=== PATIENT | male | born 1960 | race Caucasian/White ===

== ENCOUNTER 2017-09-19 10:38 | Inpatient (IN) | payer MEDICARE, MEDICAID ==
[2017-09-19] MEDS ORDERED: Aspirin 81 mg CHEW TAB* 81 MG TAB.CHEW PO ONE (10:47)
[2017-09-19] MEDS: NS 0.9% 1000 ML* 1,000 ML IV ONE ×3 (10:50→11:22)
--- NOTE | 2017-09-19 11:18 | RAD ---
Indication: Dyspnea on exertion. Chest pain. Former tobacco use. Comparison: No relevant prior exams available on the [facility] PACS for comparison. Technique: Upright AP 1053 hours Report: Mild linear atelectasis at the bilateral lower lung zones. Indeterminant LEFT suprahilar density which may be artifact due to normal bronchovascular structures or represent a hilar mass. The LEFT costophrenic angle is incompletely included in the [id number]. The visualized pleural spaces are clear. Negative for pneumothorax. Mild cardiomegaly. Unremarkable central pulmonary vasculature. Anterior cervical fusion hardware and surgical anchor at the RIGHT humerus. IMPRESSION: 1. Indeterminant opacity at the LEFT suprahilar region. Given absence of prior exams on the [facility] PACS to document stability and history of tobacco use consider PA and lateral chest radiographs or contrast-enhanced chest CT for further assessment. 2. Mild bilateral lower lung zone linear subsegmental atelectasis.
[2017-09-19 11:33] LABS: ABS Basophils 0 10^3/ul (0-0.2); ABS Eosinophils 0 10^3/ul (0-0.6); ABS Lymphocytes 0.4 10^3/ul (1.0-4.8); ABS Monocytes 0.3 10^3/ul (0-0.8); ABS Neutrophils 0.8 10^3/ul (1.5-7.7); ABS Nucleated RBC 0 10^3/ul; Eosinophil % 0.2 % (0-6); Hematocrit 25 % (42-52); Hemoglobin 8.4 g/dl (14.0-18.0); Lymphocyte % 27.5 % (25-47); Mean Corpuscular HGB Conc 34 g/dl (31-36); Mean Corpuscular Hemoglobin 38 pg (27-31); Mean Corpuscular Volume 111 fL (80-94); Mean Platelet Volume 8.2 um3 (7.4-10.4); Nucleated Red Blood Cells % 0; Platelet Count 54 10^3/ul (150-450); Red Blood Count 2.23 10^6/ul (4.0-5.4); Red Cell Distribution Width 17 % (10.5-15); White Blood Count 1.5 10^3/ul (3.5-10.8)
[2017-09-19] MEDS ORDERED: Piperacillin/Tazobac ADVAN(*) 3.375 GM in NS 0.9% 100 ML* 100 ML IVPB ONE (11:37)
[2017-09-19 11:54] LABS: EGFR Non-African American 110.4 (>60)
[2017-09-19] MEDS: NS 0.9% 1000 ML*IV.FLUID IV ONE ×2 (11:57→12:04)
[2017-09-19 11:58] LABS: Urine Appearance Clear; Urine Blood Negative (Negative); Urine Color Yellow; Urine Ketones Negative (Negative); Urine Protein Negative (Negative); Urine Specific Gravity 1.013 (1.010-1.030); Urine Urobilinogen Negative (Negative)
[2017-09-19] MEDS ORDERED: Vancomycin(*) 1,000 MG VIAL IVPB SCH (12:00)
[2017-09-19] MEDS ORDERED: Vancomycin 1500 MG IV - x ONCE IVPB ONE ×2 (12:30)
--- NOTE | 2017-09-19 13:52 | ED ---
Stuart Cosme Tiffany, scribed for Yifan Giles on 09/19/17 at 1057 . HPI Chest Pain - HPI Summary HPI Summary: 56 y/o M NELI from Urgent Care complains of central chest pain that began last night, worse since 05:00 today. Pain radiates to his back. Rates pain 0/10 in severity. Symptoms aggravated and alleviated by nothing. Reports chills that began at 09:00 today, fever. Denies cough. Given Tylenol at Urgent Care. Hx of blood disease, takes aspirin. Denies hx asthma, COPD, blood clots. - History of Current Complaint Chief Complaint: EDFever Time Seen by Provider: 09/19/17 10:46 Hx Obtained From: Patient Onset/Duration: Started Hours Ago - Last night, Still Present, Worse Since - 05: 00 today Current Severity: None Pain Intensity: 0 Pain Scale Used: 0-10 Numeric Chest Pain Location: Diffuse Chest Pain Radiates: Yes Chest Pain Radiates To:: Back Aggravating Factor(s): Nothing Alleviating Factor(s): Nothing Associated Signs and Symptoms: Positive: Fever, Chills. Negative: Cough - Allergy/Home Medications Allergies/Adverse Reactions: Allergies Allergy/AdvReac Type Severity Reaction Status Date / Time doxycycline Allergy Joint Pain Verified 09/19/17 12:05 Home Medications: Home Medications Aspirin EC TAB* [Ecotrin EC Low Dose 81 MG*] 81 mg PO DAILY 09/19/17 [History Confirmed 09/19/17] Baclofen TAB* [Lioresal TAB*] 10 mg PO TID PRN 09/19/17 [History Confirmed 09/19] Clindamycin Cap(NF) [Clindamycin Cap 300 mg Cap(NF)] 300 mg PO Q6H 09/19/17 [ History Confirmed 09/19/17] Cyanocobalamin TAB* [Vitamin B12 TAB*] 1,000 mcg PO DAILY 09/19/17 [History Confirmed 09/19/17] Fenofibrate(NF) [Tricor(NF)] 145 mg PO DAILY 09/19/17 [History Confirmed ] Gabapentin CAP(*) [Neurontin 400 mg CAP(*)] 800 mg PO TID 09/19/17 [History Confirmed 09/19/17] HYDROmorphone TAB* [Dilaudid TAB*] 4 mg PO QID PRN 09/19/17 [History Confirmed 09/19/17] metFORMIN* [Glucophage 500 MG TAB *] 500 mg PO BID 09/19/17 [History Confirmed 09/19/17] PMH/Surg Hx/FS Hx/Imm Hx Previously Healthy: No Endocrine/Hematology History: Reports: Other Endocrine/Hematological Disorders - Blood disease Respiratory History: Denies: Hx Asthma, Hx Chronic Obstructive Pulmonary Disease (COPD) Sensory History: Reports: Hx Contacts or Glasses Denies: Hx Deafness Opthamlomology History: Reports: Hx Contacts or Glasses EENT History: Denies: Hx Deafness - Surgical History Surgery Procedure, Year, and Place: Back surgery--fusion. Shoulder surgery Infectious Disease History: No Infectious Disease History: Denies: Traveled Outside the [place] in Last 30 Days - Family History Known Family History: Positive: Cardiac Disease - Father, Diabetes - Both mother and father - Social History Hx Substance Use: No Substance Use Type: Reports: None Smoking Status (MU): Unknown if Ever Smoked Review of Systems Positive: Fever, Chills Positive: Chest Pain Negative: Cough All Other Systems Reviewed And Are Negative: Yes Physical Exam - Summary Physical Exam Summary: Appearance: Well appearing, no pain distress Skin: warm, dry, reflects adequate perfusion Head/face: normal Eyes: EOMI, RADHA ENT: normal Neck: supple, non-tender Respiratory: CTA, breath sounds present Cardiovascular: Tachycardia Abdomen: non-tender, soft Bowel: present Musculoskeletal: normal, strength/ROM intact Neuro: normal, sensory motor intact, A&Ox3 Triage Information Reviewed: Yes Vital Signs On Initial Exam: Initial Vitals Temp Pulse Resp BP Pulse Ox 102.1 F 130 22 175/87 96 09/19/17 10:38 09/19/17 10:38 09/19/17 10:38 09/19/17 10:38 09/19/17 10:38 Vital Signs Reviewed: Yes Diagnostics - Vital Signs Vital Signs Temp Pulse Resp BP Pulse Ox 09/19/17 10:38 102.1 F 130 22 175/87 96 - Laboratory Lab Results: Lab Results 09/19/17 09/19/17 09/19/17 Range/Units 11:00 11:00 11:00 WBC 1.5 L (3.5-10.8) 10^3/ul RBC 2.23 L (4.0-5.4) 10^6/ul Hgb 8.4 L (14.0-18.0) g/dl Hct 25 L (42-52) % MCV 111 H (80-94) fL MCH 38 H (27-31) pg MCHC 34 (31-36) g/dl RDW 17 H (10.5-15) % Plt Count 54 L (150-450) 10^3/ul MPV 8.2 (7.4-10.4) um3 Neut % (Auto) 53.8 (38-83) % Lymph % (Auto) 27.5 (25-47) % [place] % (Auto) 17.9 H (0-7) % Eos % (Auto) 0.2 (0-6) % Baso % (Auto) 0.6 (0-2) % Absolute Neuts (auto) 0.8 L* (1.5-7.7) 10^3/ul Absolute Lymphs (auto) 0.4 L (1.0-4.8) 10^3/ul Absolute Monos (auto) 0.3 (0-0.8) 10^3/ul Absolute Eos (auto) 0 (0-0.6) 10^3/ul Absolute Basos (auto) 0 (0-0.2) 10^3/ul Absolute Nucleated RBC 0 10^3/ul Nucleated RBC % 0 APTT 29.8 (26.0-36.3) seconds D-Dimer, Quantitative < 200 (Less Than 230) ng/mL Sodium 138 L (139-145) mmol/L Potassium 3.5 (3.5-5.0) mmol/L Chloride 106 (101-111) mmol/L Carbon Dioxide 22 (22-32) mmol/L Anion Gap 10 (2-11) mmol/L BUN 9 (6-24) mg/dL Creatinine 0.73 (0.67-1.17) mg/dL Est GFR ( Amer) 141.9 (>60) Est GFR (Non-Af Amer) 110.4 (>60) BUN/Creatinine Ratio 12.3 (8-20) Glucose 160 H (70-100) mg/dL Lactic Acid (0.5-2.0) mmol/L Calcium 8.5 L (8.6-10.3) mg/dL Magnesium 1.4 L (1.9-2.7) mg/dL Total Bilirubin 1.10 H (0.2-1.0) mg/dL AST 22 (13-39) U/L ALT 18 (7-52) U/L Alkaline Phosphatase 36 (34-104) U/L Total Creatine Kinase 59 (10-223) U/L CK-MB (CK-2) 1.1 (0.6-6.3) ng/mL Troponin I 0.00 (<0.04) ng/mL B-Natriuretic Peptide ( - 100) pg/mL Total Protein 6.4 (6.4-8.9) g/dL Albumin 3.8 (3.2-5.2) g/dL Globulin 2.6 (2-4) g/dL Albumin/Globulin Ratio 1.5 (1-3) TSH 0.24 L (0.34-5.60) mcIU/mL Urine Color Urine Appearance Urine pH (5-9) Ur Specific [employer] [place] (1.010-1.030) Urine Protein (Negative) Urine Ketones (Negative) Urine Blood (Negative) Urine Nitrate (Negative) Urine Bilirubin (Negative) Urine Urobilinogen (Negative) Ur Leukocyte Esterase (Negative) Urine Glucose (Negative) 09/19/17 09/19/17 09/19/17 Range/Units 11:01 11:01 11:01 WBC (3.5-10.8) 10^3/ul RBC (4.0-5.4) 10^6/ul Hgb (14.0-18.0) g/dl Hct (42-52) % MCV (80-94) fL MCH (27-31) pg MCHC (31-36) g/dl RDW (10.5-15) % Plt Count (150-450) 10^3/ul MPV (7.4-10.4) um3 Neut % (Auto) (38-83) % Lymph % (Auto) (25-47) % [place] % (Auto) (0-7) % Eos % (Auto) (0-6) % Baso % (Auto) (0-2) % Absolute Neuts (auto) (1.5-7.7) 10^3/ul Absolute Lymphs (auto) (1.0-4.8) 10^3/ul Absolute Monos (auto) (0-0.8) 10^3/ul Absolute Eos (auto) (0-0.6) 10^3/ul Absolute Basos (auto) (0-0.2) 10^3/ul Absolute Nucleated RBC 10^3/ul Nucleated RBC % APTT (26.0-36.3) seconds D-Dimer, Quantitative (Less Than 230) ng/mL Sodium (139-145) mmol/L Potassium (3.5-5.0) mmol/L Chloride (101-111) mmol/L Carbon Dioxide (22-32) mmol/L Anion Gap (2-11) mmol/L BUN (6-24) mg/dL Creatinine (0.67-1.17) mg/dL Est GFR ( Amer) (>60) Est GFR (Non-Af Amer) (>60) BUN/Creatinine Ratio (8-20) Glucose (70-100) mg/dL Lactic Acid 2.5 H* (0.5-2.0) mmol/L Calcium (8.6-10.3) mg/dL Magnesium (1.9-2.7) mg/dL Total Bilirubin (0.2-1.0) mg/dL AST (13-39) U/L ALT (7-52) U/L Alkaline Phosphatase (34-104) U/L Total Creatine Kinase (10-223) U/L CK-MB (CK-2) (0.6-6.3) ng/mL Troponin I (<0.04) ng/mL B-Natriuretic Peptide 25 ( - 100) pg/mL Total Protein (6.4-8.9) g/dL Albumin (3.2-5.2) g/dL Globulin (2-4) g/dL Albumin/Globulin Ratio (1-3) TSH (0.34-5.60) mcIU/mL Urine Color Yellow Urine Appearance Clear Urine pH 7.0 (5-9) Ur Specific [employer] [place] 1.013 (1.010-1.030) Urine Protein Negative (Negative) Urine Ketones Negative (Negative) Urine Blood Negative (Negative) Urine Nitrate Negative (Negative) Urine Bilirubin Negative (Negative) Urine Urobilinogen Negative (Negative) Ur Leukocyte Esterase Negative (Negative) Urine Glucose 1+(50 mg/dl) A (Negative) Result Diagrams: 09/19/17 11:00 09/19/17 11:00 Lab Statement: Any lab studies that have been ordered have been reviewed, and results considered in the medical decision making process. - Radiology CXR Radiology Interpretation Completed By: Radiologist - 1. Indeterminant opacity at the LEFT suprahilar region. Given absence of prior exams on the [facility] PACS to document stability and history of tobacco use consider PA and lateral chest radiographs or contrast-enhanced chest CT for further assessment. 2. Mild bilateral lower lung zone linear subsegmental atelectasis. ED physician has reviewed this report. - EKG 10:44 Cardiac Rate: Tachycardia - 125 BPM EKG Rhythm: Sinus Tachycardia Chest Pain Course/Dx - Course Course Of Treatment: 56 y/o M presents with central chest pain that began last night, worse since 05:00 today. Bloodwork, imaging, UA obtained. Consulted with Dr. Lemus, who agrees to admit patient. - Chest Pain Differential Diagnosis/HQI/PQRI: ACS, Chest Wall, Lower Respiratory Infection, Other: - pneumonia/mds - Diagnoses Provider Diagnoses: Pneumonia, Sepsis, MDS (myelodysplastic syndrome) - Provider Notifications Discussed Care Of Patient With: Dionisio Lemus Time Discussed With Above Provider: 12:45 Instructed by Provider To: Other - Dr. Lemus, oncology, agrees to admit patient. - Critical Care Time Critical Care Time: 30-74 min - 30 minutes Discharge - Sign-Out/Discharge Documenting (check all that apply): Discharge/Admit/Transfer - Discharge Plan Condition: Fair Disposition: ADMITTED TO [facility] Referrals: Justin DOMINGO,Ismael Jimenez [Primary Care Provider] - - Billing Disposition and Condition Condition: FAIR Disposition: HOSP-[facility] The documentation as recorded by the Stuart corral Tiffany accurately reflects the service I personally performed and the decisions made by , Yifan Giles.
[2017-09-19] MEDS ORDERED: TAZOBAC ADVAN IVPB ONE (16:36)
[2017-09-19] MEDS ORDERED: NS 0.9% IVPB ONE (16:36)
[2017-09-19] MEDS ORDERED: PIPERACILLIN IVPB ONE (16:36)
[2017-09-19] MEDS ORDERED: Calcium Carbonate CHEW TAB* 500 MG (TUMS) PO PRN (16:47)
[2017-09-19] MEDS ORDERED: Magnesium Sulf 4 GM/100 ML IV* 4,000 MG/100 ML BAG IVPB ONE ×2 (16:48→19:30)
[2017-09-19] MEDS ORDERED: Zosyn per Pharmacy* NOTE FOLLOW UP SCH (17:00)
[2017-09-19] MEDS ORDERED: ZOSYN 3.375 GM x ONE DOSE over 30 miuntes IVPB ×2 (19:00)
[2017-09-19] MEDS: NS 0.9% 1000 ML* 1,000 ML IV SCH (19:47)
[2017-09-19] MEDS: Enoxaparin(*) 40 MG/0.4 ML SYR SUBCUT SCH (20:07)
[2017-09-19] MEDS: HYDROmorphone TAB* 4 MG PO PRN (20:08)
[2017-09-19] MEDS: FILGRASTIM-SNDZ* 480 MCG/0.8 ML SYRINGE SUBCUT SCH (20:22)
[2017-09-19] MEDS: Baclofen TAB* 10 MG PO PRN (21:10)
[2017-09-19] MEDS: metFORMIN* 500 MG TAB PO SCH (21:10)
[2017-09-19] MEDS: Gabapentin CAP(*) 400 MG PO SCH (21:11)
[2017-09-19] MEDS ORDERED: Ondansetron ODT TAB* 4 MG PO PRN (21:53)
[2017-09-19] MEDS: ZOSYN 3.375 GM Q8H per EXTENDED INFUSION IVPB SCH ×2 (23:17)
[2017-09-20] MEDS: Baclofen TAB* 10 MG PO PRN (04:02)
[2017-09-20] MEDS: HYDROmorphone TAB* 4 MG PO PRN ×4 (04:02→20:18)
[2017-09-20] MEDS: Omeprazole CAP* 20 MG PO SCH (05:49)
[2017-09-20 06:51] LABS: EGFR Non-African American 138.4 (>60)
[2017-09-20 06:56] LABS: Hematocrit 24 % (42-52); Hemoglobin 8.5 g/dl (14.0-18.0); Mean Corpuscular HGB Conc 35 g/dl (31-36); Mean Corpuscular Hemoglobin 39 pg (27-31); Mean Corpuscular Volume 109 fL (80-94); Mean Platelet Volume 8.6 um3 (7.4-10.4); Platelet Count 54 10^3/ul (150-450); Red Cell Distribution Width 17 % (10.5-15); White Blood Count 2.8 10^3/ul (3.5-10.8)
[2017-09-20 07:00] LABS: Monocytes % 10 % (0-7)
[2017-09-20] MEDS: Cyanocobalamin TAB* 500 MCG PO SCH (08:10)
[2017-09-20] MEDS: metFORMIN* 500 MG TAB PO SCH ×2 (08:10→16:14)
[2017-09-20] MEDS: Aspirin EC TAB* 81 MG TAB.EC PO SCH (08:10)
[2017-09-20] MEDS: Gabapentin CAP(*) 400 MG PO SCH ×3 (08:10→20:18)
[2017-09-20] MEDS: FILGRASTIM-SNDZ* 480 MCG/0.8 ML SYRINGE SUBCUT SCH (08:11)
[2017-09-20] MEDS: ZOSYN 3.375 GM Q8H per EXTENDED INFUSION IVPB SCH ×6 (08:11→23:02)
[2017-09-20] MEDS ORDERED: FENOFIBRATE 145 MG PO SCH (09:00)
[2017-09-20] MEDS: NS 0.9% 1000 ML* 1,000 ML IV SCH (10:00)
--- NOTE | 2017-09-20 12:50 | RAD ---
Indication: Evaluate suprahilar region. 2 views of the chest including dual energy PA views are reviewed and compared to previous exam of September 19, 2017. No mediastinal shift is noted. Heart is of normal size and configuration. Lung patterson demonstrate no pleural fluid, pneumonia or pneumothorax. IMPRESSION: No active cardiopulmonary disease is noted.
[2017-09-20] MEDS: Enoxaparin(*) 40 MG/0.4 ML SYR SUBCUT SCH (16:14)
[2017-09-21] MEDS: HYDROmorphone TAB* 4 MG PO PRN (03:16)
[2017-09-21] MEDS: Omeprazole CAP* 20 MG PO SCH (05:27)
[2017-09-21] MEDS: ZOSYN 3.375 GM Q8H per EXTENDED INFUSION IVPB SCH ×2 (07:08)
[2017-09-21 07:28] LABS: ABS Basophils 0 10^3/ul (0-0.2); ABS Eosinophils 0 10^3/ul (0-0.6); ABS Lymphocytes 1.3 10^3/ul (1.0-4.8); ABS Monocytes 0.7 10^3/ul (0-0.8); ABS Neutrophils 11.8 10^3/ul (1.5-7.7); ABS Nucleated RBC 0 10^3/ul; Eosinophil % 0.1 % (0-6); Hematocrit 26 % (42-52); Hemoglobin 8.9 g/dl (14.0-18.0); Lymphocyte % 9.3 % (25-47); Mean Corpuscular HGB Conc 34 g/dl (31-36); Mean Corpuscular Hemoglobin 38 pg (27-31); Mean Corpuscular Volume 111 fL (80-94); Mean Platelet Volume 8.5 um3 (7.4-10.4); Nucleated Red Blood Cells % 0; Platelet Count 57 10^3/ul (150-450); Red Blood Count 2.33 10^6/ul (4.0-5.4); Red Cell Distribution Width 17 % (10.5-15); White Blood Count 13.7 10^3/ul (3.5-10.8)
[2017-09-21 07:51] LABS: Monocytes % 4 % (0-7)
[2017-09-21] MEDS: Cyanocobalamin TAB* 500 MCG PO SCH (08:28)
[2017-09-21] MEDS: Gabapentin CAP(*) 400 MG PO SCH ×2 (08:28→14:02)
[2017-09-21] MEDS: metFORMIN* 500 MG TAB PO SCH (08:28)
[2017-09-21] MEDS: Aspirin EC TAB* 81 MG TAB.EC PO SCH (08:29)
[2017-09-21] MEDS: FILGRASTIM-SNDZ* 480 MCG/0.8 ML SYRINGE SUBCUT SCH (08:29)
[2017-09-21] MEDS ORDERED: PTO:Fenofibrate(NF) 145 MG TAB PO SCH (09:00)
--- NOTE | 2017-09-21 10:21 | DS ---
- Discharge Summary ADMIT DATE: 09/19/17 DISCHARGE DATE: 09/21/17 DISCHARGE DIAGNOSES: 1. neutropenic fever, unclear source 2. MDS 3. chronic back pain DISCHARGE MEDICATIONS: Home Medications Medication Instructions Recorded Confirmed Type Aspirin EC TAB* [Ecotrin EC Low 81 mg PO DAILY 09/19/17 09/19/17 History Dose 81 MG*] Baclofen TAB* [Lioresal TAB*] 10 mg PO TID PRN 09/19/17 09/19/17 History Cyanocobalamin TAB* [Vitamin B12 1,000 mcg PO DAILY 09/19/17 09/19/17 History TAB*] Fenofibrate(NF) [Tricor(NF)] 145 mg PO DAILY 09/19/17 09/19/17 History Gabapentin CAP(*) [Neurontin 400 800 mg PO TID 09/19/17 09/19/17 History mg CAP(*)] HYDROmorphone TAB* [Dilaudid Tab*] 4 mg PO QID PRN 09/19/17 09/19/17 History metFORMIN* [Glucophage 500 MG TAB 500 mg PO BID 09/19/17 09/19/17 History *] Levofloxacin TAB* [Levaquin TAB*] 750 mg PO DAILY #5 tab 09/21/17 Rx MAGIC MOUTHWASH SWISH AND SWALLOW qid DISCHARGE FOLLOW UP: Dr. Lemus 10/04 at 9 am HOSPITAL COURSE: Please see full H+P, briefly 56 yo M w PMH of MDS currently only on aranesp for progressive anemia, now presenting with febrile neutropenia. ~3 weeks prior to admission he got a doxycycline for a black spot near thumb and concern for tick borne illness. this was switched to amoxicillin for poor tolerance. 2 weeks later he had a sore tooth and got a script for clindamycin which he took for a couple of days then presented here with febrile neutropenia. CXR portable with questionable suprahilar mass/infiltrate though follow up PA/LAT CXR is clear. He got neupogen with brisk response, has had negative cultures and no fever x 2 dys and will go home on a 5 day course of levaquin and magic mouthwash. One may consider either Azacitidine or neupogen therapy moving forward. He will follow up with Dr. Lemus on the to . >30 mins spent, >50% in face to face counseling
[2017-09-21 11:50] VITALS: BP 148/73
== END 2017-09-21 14:15 | disposition home or self-care (01) | DRG 810 ==
LOC: ED 10:38 → MED 17:01
PROVIDERS: ADMIT Internal Medicine Hematology & Oncology; ATTEND Internal Medicine Hematology & Oncology
PROC: 5A09357 Assistance with Respiratory Ventilation, Less than 24 Consecutive Hours, Continuous Positive Airway Pressure (ICD-10-PCS; principal; 2017-09-19)
DX: D70.9 Neutropenia, unspecified (principal); R50.81 Fever presenting with conditions classified elsewhere; D46.9 Myelodysplastic syndrome, unspecified; G89.29 Other chronic pain; M54.9 Dorsalgia, unspecified; E11.9 Type 2 diabetes mellitus without complications; E78.5 Hyperlipidemia, unspecified; M19.90 Unspecified osteoarthritis, unspecified site; G47.30 Sleep apnea, unspecified; R07.9 Chest pain, unspecified; Z79.82 Long term (current) use of aspirin; Z79.84 Long term (current) use of oral hypoglycemic drugs; Z98.1 Arthrodesis status; Z87.891 Personal history of nicotine dependence; Z82.49 Family history of ischemic heart disease and other diseases of the circulatory system; Z88.1 Allergy status to other antibiotic agents; Z83.3 Family history of diabetes mellitus
CPT/HCPCS: 36415; 71045; 71046; 80053; 81003; 82550; 82553; 83605; 83735; 83880; 84443; 84484; 85025; 85060; 85379; 85730; 87040; 87899; 93005; 94660; 99222; 99232; 99239; 99284; A9270-GY; J1650; J2543; J3370; J3475; Q5101

== ENCOUNTER 2019-03-13 20:35 | Emergency (ER) | payer MEDICARE, MEDICAID ==
--- NOTE | 2019-03-13 21:54 | ED ---
Complex/Multi-Sys Presentation - HPI Summary HPI Summary: Patient is a 58 y/o M presenting to the ED for a chief complaint of bleeding for a right-sided chest port. Patient is present with his daughter. Patient states that around 16:00 on 03/13/19, patient had a port placed on the right side of the chest. The area was non-bleeding until an hour later when he noticed bleeding from the area that would not stop. He reports some excessive bleeding with superficial abrasions or cuts. Patient denies fever, myalgia, or headache. Patient denies taking blood thinners. PMHx is significant for bone marrow problems, but denies blood clots. Patient sees Dr. Mccann. Patient denies tobacco, alcohol, or drug use. Allergies noted. Medications reviewed. - History Of Current Complaint Chief Complaint: EDBleedingDisorder Time Seen by Provider: 03/13/19 20:46 Hx Obtained From: Patient Onset/Duration: Sudden Onset, Still Present Timing: Constant Severity Currently: Moderate Severity Initially: Moderate Associated Signs And Symptoms: Positive: Other - Positive bleeding for right- sided chest port; negative myalgia. Negative: Headache, Fever - Allergies/Home Medications Allergies/Adverse Reactions: Allergies Allergy/AdvReac Type Severity Reaction Status Date / Time doxycycline Allergy Joint Verified 03/13/19 20:40 Pain/GI Upset PMH/Surg Hx/FS Hx/Imm Hx Previously Healthy: Yes Endocrine/Hematology History: Reports: Hx Bone Marrow Disease, Other Endocrine/ Hematological Disorders - Blood disease Cardiovascular History: Denies: Hx Hypercholesterolemia, Hx Hypertension Respiratory History: Denies: Hx Asthma, Hx Chronic Obstructive Pulmonary Disease (COPD) Sensory History: Reports: Hx Contacts or Glasses Denies: Hx Legally Blind, Hx Deafness, Hx Hearing Aid Opthamlomology History: Reports: Hx Contacts or Glasses Denies: Hx Legally Blind EENT History: Denies: Hx Deafness - Surgical History Surgical History: Yes Surgery Procedure, Year, and Place: Back surgery--fusion. Shoulder surgery Infectious Disease History: No Infectious Disease History: Denies: Traveled Outside the [place] in Last 30 Days - Family History Known Family History: Positive: Cardiac Disease - Father, Diabetes - Both mother and father - Social History Occupation: Retired Lives: With Family Alcohol Use: None Hx Substance Use: No Substance Use Type: Reports: None Hx Tobacco Use: Yes Smoking Status (MU): Former Smoker Review of Systems Negative: Fever Negative: Myalgia Positive: Other - Positive right-sided chest port with bleeding Negative: Headache All Other Systems Reviewed And Are Negative: Yes Physical Exam - Summary Physical Exam Summary: Constitutional: Well-developed, Well-nourished, Alert. (-) Distressed Skin: Warm, Dry. Right-sided chest port with blood. HENT: Normocephalic; Atraumatic Eyes: Conjunctiva normal Neck: Musculoskeletal ROM normal neck. (-) JVD, (-) Stridor, (-) Tracheal deviation Cardio: Rhythm regular, rate normal, Heart sounds normal; Intact distal pulses; Radial pulses are 2+ and symmetric. (-) Murmur Pulmonary/Chest wall: Effort normal. (-) Respiratory distress, (-) Wheezes, (-) Rales Abd: Soft, (-) tenderness, (-) Distension, (-) Guarding, (-) Rebound Musculoskeletal: (-) Edema Lymph: (-) Cervical adenopathy Neuro: Alert, Oriented x3 Psych: Mood and affect Normal Triage Information Reviewed: Yes Vital Signs On Initial Exam: Initial Vitals Temp Pulse Resp BP Pulse Ox 98.9 F 116 16 145/76 94 03/13/19 20:37 03/13/19 20:37 03/13/19 20:37 03/13/19 20:37 03/13/19 20:37 Vital Signs Reviewed: Yes Procedures - Sedation Patient Received Moderate/Deep Sedation with Procedure: No Diagnostics - Vital Signs Vital Signs Temp Pulse Resp BP Pulse Ox 03/13/19 20:37 98.9 F 116 16 145/76 94 - Laboratory Lab Statement: Any lab studies that have been ordered have been reviewed, and results considered in the medical decision making process. Re-Evaluation - Re-Evaluation First Eval Re-Evaluation Time: 21:28 Change: Improved Comment: At 21:28, the bleeding stopped after applying pressure to the area for 30 minutes. Complex Multi-Symp Course/Dx Course Of Treatment: Patient is here with bleeding at the site of his tunneled central venous line. Patient had his line placed today by Dr. Mccann. Patient had a platelets of 75 prior to the procedure. Patient had his dressing removed , pressure was held for 30 minutes with cessation of bleeding. A clean dressing was placed. - Diagnoses Provider Diagnoses: Central line complication, Thrombocytopenia - Physician Notifications Discussed Care Of Patient With: palli Discharge ED - Sign-Out/Discharge Documenting (check all that apply): Patient Departure - Discharge - Discharge Plan Condition: Stable Disposition: HOME Patient Education Materials: Thrombocytopenia (ED) Referrals: Justin DOMINGO,Ismael Jimenez [Primary Care Provider] - Micheal Mccann MD [Medical Doctor] - Additional Instructions: Follow up with Dr. Mccann and your primary care provider in 1-3 days. If start bleeding through your bandage again, have someone apply pressure for 30 minutes continuously. If it does not stop bleeding, return to the Emergency Department. Dr. Pickett nurse will call you in the morning to see how you are doing. - Billing Disposition and Condition Condition: STABLE Disposition: Home - Attestation Statements Document Initiated by Ezequiel: Yes Documenting Scribe: Awa Arguelles Provider For Whom Ezequiel is Documenting (Include Credential): Ismael Marinelli MD Scribe Attestation: Awa Cosme, scribed for Ismael Marinelli MD on 03/16/19 at 0914. Scribe Documentation Reviewed: Yes Provider Attestation: The documentation as recorded by the Awa corral accurately reflects the service I personally performed and the decisions made by , Ismael Marinelli MD Status of Scribe Document: Viewed
[2019-03-13 22:04] VITALS: BP 143/80
== END 2019-03-13 21:54 | disposition home or self-care (01) ==
LOC: ED 20:35
DX: T82.898A Other specified complication of vascular prosthetic devices, implants and grafts, initial encounter (principal); D69.6 Thrombocytopenia, unspecified; D46.9 Myelodysplastic syndrome, unspecified; X58.XXXA Exposure to other specified factors, initial encounter; Y92.9 Unspecified place or not applicable; Z87.891 Personal history of nicotine dependence
CPT/HCPCS: 99283